=== PATIENT | male | born 1990 | race Two or more races ===

== ENCOUNTER 2021-10-20 07:41 | Emergency (ER) | payer OTHER ==
[~2021-10-20] VITALS: Ht 172.7 cm; Wt 76.2 kg
[2021-10-20] MEDS ORDERED: TRIUMEQ TABLET1 EACH PO (07:52)
== END 2021-10-20 08:59 | disposition home or self-care (01) ==
LOC: ER 07:41
DX: K64.8 Other hemorrhoids (principal); B20 Human immunodeficiency virus [HIV] disease

== ENCOUNTER 2021-11-19 09:40 | Emergency (ER) | payer OTHER ==
[~2021-11-19] VITALS: Ht 195.6 cm; Wt 74.8 kg
[~2021-11-19 09:40] MED LIST: TRIUMEQ TABLET1 EACH PO
== END 2021-11-19 10:54 | disposition home or self-care (01) ==
LOC: ER 09:40
DX: K62.89 Other specified diseases of anus and rectum (principal); Z98.890 Other specified postprocedural states; B20 Human immunodeficiency virus [HIV] disease

== ENCOUNTER 2021-11-21 20:21 | Emergency (ER) | payer OTHER ==
[~2021-11-21] VITALS: Ht 172.7 cm; Wt 76.2 kg
[2021-11-21] MEDS ORDERED: TRIUMEQ TABLET1 EACH (20:42)
== END 2021-11-21 22:35 | disposition home or self-care (01) ==
LOC: ER 20:21
DX: K62.89 Other specified diseases of anus and rectum (principal)

== ENCOUNTER 2024-12-02 09:16 | Emergency (ER) | payer OTHER ==
[~2024-12-02] VITALS: Ht 172.7 cm; Wt 77.1 kg
[~2024-12-02 09:16] MED LIST changes: +TRIUMEQ TABLET1 EACH
[2024-12-02] MEDS ORDERED: FAMOtidine 10 MG/ML (4ML VIAL) IV ONE (10:45)
[2024-12-02] MEDS ORDERED: CEFTRIAXONE SODIUM 1,000 MG VIAL IV ONE (10:45)
[2024-12-02] MEDS ORDERED: METHYLPREDNISOLONE SOD SUCC 125 MG VIAL IV ONE (10:45)
[2024-12-02] MEDS ORDERED: DIPHENHYDRAMINE HCL 50 MG/ML VIAL 1ML IV ONE (10:45)
[2024-12-02] MEDS ORDERED: CEFTRIAXONE SODIUM 1,000 MG VIAL ONE (11:02)
[2024-12-02] MEDS ORDERED: METHYLPREDNISOLONE SOD SUCC 125 MG VIAL ONE (11:02)
[2024-12-02] MEDS ORDERED: DIPHENHYDRAMINE HCL 50 MG/ML VIAL 1ML ONE (11:02)
[2024-12-02] MEDS ORDERED: FAMOTIDINE/PF 20 MG/2 ML VIAL ONE (11:02)
[2024-12-02 11:15] LABS: HEMATOCRIT 48.2 % (39.0-48.0); HEMOGLOBIN 16.4 g/dL (13-16.00); MEAN CELL VOLUME 87.1 fL (80.0-100.00); MEAN CORPUSCULAR HEMOGLOBIN 29.7 pg (27.00-32.0); MEAN CORPUSCULAR HGB CONC 34.1 g/dl (32.0-36.0); PLATELET COUNT 354 K/uL (150-450); RED BLOOD COUNT 5.54 M/uL (4.00-6.00); RED CELL DISTRIBUTION WIDTH 13.4 % (11.5-14.5)
[2024-12-02] MEDS ORDERED: ZOFRAN8 MG PO (12:00)
[2024-12-02] MEDS ORDERED: MEDROLPACK PO (12:00)
[2024-12-02] MEDS ORDERED: AZITHROMYCIN500 MG PO (12:00)
[2024-12-02] MEDS ORDERED: BENADRYL ALLERG25 MG PO (12:00)
[2024-12-02] MEDS ORDERED: PEPCID AC20 MG PO (12:00)
== END 2024-12-02 12:18 | disposition home or self-care (01) ==
LOC: ER 09:18
PROVIDERS: General Practice
DX: J02.9 Acute pharyngitis, unspecified (principal); Z20.822 Contact with and (suspected) exposure to COVID-19